=== PATIENT | female | born 1980 | race Caucasian/White ===

== ENCOUNTER 2024-07-21 13:17 | Emergency (ER) | payer MEDICAID ==
[~2024-07-21] VITALS: Ht 160 cm; Wt 66.0 kg
[2024-07-21 13:22] VITALS: O2SAT 98
[2024-07-21 14:32] LABS: HEMATOCRIT. 42.9 % (36.0-48.0); MEAN CORPUSCULAR HEMOGLOBIN 28.5 pg (28.0-32.0); MEAN CORPUSCULAR HGB CONC 32.7 g/dL (31.0-37.0); MEAN PLATELET VOLUME 10.4 fl (7.4-10.4); PLATELET 236 x1000/uL (130-400); RED BLOOD CELL COUNT 4.93 mill/uL (4.2-5.4); RED CELL DISTRIBUTION WIDTH 13.7 % (11.6-14.6); WHITE BLOOD COUNT 13.1 x1000/uL (4.5-11.0)
[2024-07-21 14:38] LABS: CHLORIDE 108 mEq/L (98-107); POTASSIUM 3.9 mEq/L (3.5-5.1); SODIUM 140 mEq/L (136-145)
[2024-07-21 14:39] LABS: CALCIUM 9.3 mg/dL (8.7-10.4); CARBON DIOXIDE 25 mEq/L (21-32); HCG SCREEN NEGATIVE
[2024-07-21 14:40] LABS: DIFFERENTIAL COMMENT 1
[2024-07-21 14:44] LABS: CREATININE 0.7 mg/dL (0.6-1.0); GLUCOSE 108 mg/dL (70-105); UREA NITROGEN BLOOD 11 mg/dL (9-23)
[2024-07-21] MEDS: KETOROLAC 15MG/ML VIAL IV ONE (15:50)
[2024-07-21 17:05] LABS: PLATELET ESTIMATE NORMAL
[2024-07-21] MEDS ORDERED: IBUP-2029 MT (17:16)
[2024-07-21 17:54] VITALS: BP 124/85; PULSE 89; RESP 16; TEMP 37.39188; O2SAT 98
[2024-07-21] MEDS ORDERED: IOHEXOL-300 100 ML BOTTLE ONE (23:08)
== END 2024-07-21 17:56 | disposition home or self-care (01) ==
LOC: ER 13:17
DX: S40.022A Contusion of left upper arm, initial encounter (principal); R10.9 Unspecified abdominal pain; V89.2XXA Person injured in unspecified motor-vehicle accident, traffic, initial encounter; Y93.89 Activity, other specified; Y92.89 Other specified places as the place of occurrence of the external cause; Y99.8 Other external cause status
CPT/HCPCS: 99285; 74177; 96374; 80048; 84703; 85025; 36415; 73090; Q9967; J1885